=== PATIENT | female | born 1950 ===

== ENCOUNTER 2017-09-15 07:23 | Day surgery (SDC) | payer MEDICARE, OTHER ==
[2017-09-15] MEDS ORDERED: Midazolam 2 MG/2 ML VIAL ONE (09:44)
[2017-09-15] MEDS ORDERED: Propofol 10 mg/ml Inj (20 ML) ONE (09:44)
[2017-09-15] MEDS ORDERED: Lactated Ringer's 1,000 ML IV ONE (10:06)
[2017-09-15 10:47] VITALS: TEMP 96.6; O2SAT 99
[2017-09-15 10:53] VITALS: BP 128/78; PULSE 96; RESP 21
== END 2017-09-15 13:03 | disposition home or self-care (01) ==
LOC: H.ENDO 07:23
PROVIDERS: ATTEND Internal Medicine Gastroenterology
DX: Z12.11 Encounter for screening for malignant neoplasm of colon (principal); E11.9 Type 2 diabetes mellitus without complications; E78.5 Hyperlipidemia, unspecified; I10 Essential (primary) hypertension; K57.30 Diverticulosis of large intestine without perforation or abscess without bleeding; K64.8 Other hemorrhoids; K21.9 Gastro-esophageal reflux disease without esophagitis; K30 Functional dyspepsia; K44.9 Diaphragmatic hernia without obstruction or gangrene; K31.9 Disease of stomach and duodenum, unspecified; K29.80 Duodenitis without bleeding
CPT/HCPCS: 43239; 45378; 88305; J2250; J2704; J7120